=== PATIENT | male | born 1990 | race Caucasian/White ===

== ENCOUNTER 2019-02-05 13:30 | Emergency (ER) | payer OTHER ==
[~2019-02-05] VITALS: Ht 170.2 cm; Wt 100.0 kg
[2019-02-05] MEDS ORDERED: CloNIDine HCL 0.1 MG TABLET PO ONE (16:45)
[2019-02-05 17:30] VITALS: BP 124/62
== END 2019-02-05 17:32 | disposition home or self-care (01) ==
LOC: EMS 13:32
DX: F11.23 Opioid dependence with withdrawal (principal); F17.210 Nicotine dependence, cigarettes, uncomplicated